=== PATIENT | male | born 1970 | race Caucasian/White ===

== ENCOUNTER 2017-02-09 05:52 | Emergency (ER) | payer SELFPAY ==
--- NOTE | ~2017-02-09 | ER ---
PATIENT'S NAME: [facility] AGE: 46 Y [address] ROOM: [place] [address] LOCATION: [facility] ADMIT DATE: 02/09/2017 ER/Outpatient Report DISCHARGE DATE: 02/09/2017 FAMILY PHYSICIAN: New Nguyen MD ATTENDING PHYSICIAN: Pedro Chisholm TIME OF ARRIVAL: 0552 hours. TIME OF EVALUATION: 0556 hours. CHIEF COMPLAINT: Back pain. HISTORY OF PRESENT ILLNESS: The patient is a 46-year-old male who presents to the emergency department today with a chief complaint of back pain. He reports this started about an hour and a half prior to arrival. He was walking his dog. His dog did pull on a leash, attempting to erickson a rabbit and did kind of twisted him to the side. He does have a history of back issues in the past, but really has not had much issues with this since. He has a history compression fracture, laminectomy. Denies any other trauma, no fall. It is a sharp pain. It is constant, currently 8/10 in severity. It is worse on the right. He did not take any medicines for it. PAST MEDICAL HISTORY: Compression fracture, ADHD, bipolar, depression, spinal stenosis. PAST SURGICAL HISTORY: Laminectomy. SOCIAL HISTORY: The patient quit smoking 3 weeks ago. Reports he quit drinking 4-5 months ago. Denies any drugs. ALLERGIES: NO KNOWN DRUG ALLERGIES. MEDICATIONS: Please see list. PRIMARY CARE DOCTOR: New Nguyen MD. PATIENT'S NAME: [facility] AGE: 46 Y [address] ROOM: [place] [address] LOCATION: [facility] ADMIT DATE: 02/09/2017 ER/Outpatient Report DISCHARGE DATE: 02/09/2017 FAMILY PHYSICIAN: New Nguyen MD ATTENDING PHYSICIAN: Pedro Chisholm REVIEW OF SYSTEMS: All systems are reviewed by myself and negative with the exception of those discussed in HPI and past medical history. PHYSICAL EXAMINATION: VITAL SIGNS: Weight 98.3 kg, blood pressure 145/95, pulse 107, respiratory rate 20, temperature 97.0, oxygen saturation 97% on room air. GENERAL: The patient is a 46-year-old male, well developed, well nourished, in mild acute distress. HEENT: Head normocephalic, atraumatic. Pupils are equal, round, and reactive to light and accommodation. Extraocular motions are intact. Nares are patent bilaterally. Oropharynx is clear. Nares with clear discharge bilaterally. NECK: Supple. There is no nuchal rigidity. CARDIOVASCULAR: Regular rate and rhythm. No murmurs, rubs, or gallops. LUNGS: Clear to auscultation bilaterally. No wheezes, rales, or rhonchi. ABDOMEN: Soft, nontender, and nondistended. No rebound, rigidity, or guarding. MUSCULOSKELETAL: The patient has tenderness to palpation to the right lumbar paraspinal musculature. NEUROLOGICAL: GCS 15. Alert and oriented. The patient does have 2/4 reflexes on the left patella. He has 1/4 reflexes on the right patella. SKIN: Warm and dry. LABS AND X-RAYS: None. IMPRESSION: 1. Acute lumbar back pain, suspect musculoskeletal. 2. Initial visit. EMERGENCY DEPARTMENT COURSE: The patient was brought back to the examination room. Seen and evaluated by myself. The patient is given 5 mg of Valium IM as well as 60 mg of Toradol IM. I have discussed the results of the history and physical with the patient. I do suspect this is musculoskeletal. I have discussed level ground walking, ice, heat. I have written a prescription for Naprosyn and Flexeril with sedation warning. I have discussed following up with Dr. New Nguyen in 2-3 days for re-evaluation. I have discussed following up with Dr. Rainey in 3-6 weeks, if there is no improvement. The patient is agreeable. I have discussed return to care instructions including worsening symptoms, loss of bowel or bladder saddle anesthesia or any other concerns to return to the emergency department as soon as possible. The patient is agreeable without further questions. DISPOSITION: PATIENT'S NAME: ISIAH FULLER [facility] AGE: 46 Y [address] ROOM: [place], [place] [address] LOCATION: [facility] ADMIT DATE: 02/09/2017 ER/Outpatient Report DISCHARGE DATE: 02/09/2017 FAMILY PHYSICIAN: New Nguyen MD ATTENDING PHYSICIAN: Pedro Chisholm The patient discharged home in good condition. DO MONICA QUINONEZ/pranav /[id number] d: 02/09/17 1131 t: 02/09/17 1448, OUTPATIENT REPORT
[~2017-02-09 05:52] MED LIST: ABILIFY IM/SUB-Q; ALDACTONE25 MG PO; ATIVAN 1 MG1 MG PO; DIUREX MAX50 MG PO; DOXEPIN HCL100 MG PO; ELAVIL75 MG PO; FOLIC ACID1 MG PO; KEFLEX500 MG; LASIX40 MG PO; LIBRIUM25 MG PO; LISINOPRIL PO; LOPRESSOR50 MG PO; OMEPRAZOLE MAGN20 MG PO; PRILOSEC20 MG; PRINIVIL OR ZES10 MG PO; RITALIN 10MG10 MG PO; ROXICODONE 5MG (5 MG PO; THERA-VITE W/ B1 TAB PO; THIAMINE HCL100 MG PO; XANAX0.5 MG PO
== END 2017-02-09 06:21 | disposition disaster alternative care site (69) ==
LOC: GMED 05:52
DX: M54.5 Low back pain (principal); I10 Essential (primary) hypertension; F90.9 Attention-deficit hyperactivity disorder, unspecified type; F31.9 Bipolar disorder, unspecified; Z87.891 Personal history of nicotine dependence; Z79.899 Other long term (current) drug therapy; Z98.890 Other specified postprocedural states; X50.1XXA Overexertion from prolonged static or awkward postures, initial encounter; Y93.01 Activity, walking, marching and hiking
CPT/HCPCS: J1885; J3360

== ENCOUNTER 2017-02-20 11:34 | Inpatient (IN) | payer SELFPAY ==
[~2017-02-20] VITALS: Ht 180.3 cm; Wt 96.8 kg
--- NOTE | ~2017-02-20 | ER ---
PATIENT'S NAME: JONNY [facility] AGE: 46 Y [address] ROOM: [place] [address] LOCATION: [facility] ADMIT DATE: 02/20/2017 ER/Outpatient Report DISCHARGE DATE: FAMILY PHYSICIAN: New Nguyen MD ATTENDING PHYSICIAN: Ariel LOPEZ Time of Arrival: 1134. Time Seen: 1158. IDENTIFICATION: 46-year-old male. CHIEF COMPLAINT: Alcoholism. HISTORY OF PRESENT ILLNESS: The patient is a 46-year-old male, who had been sober for several months with the last 5 days has been "on a drinking binge." He has been drinking 1.75 L of liquor daily. He has had withdrawal symptoms in the past but no seizures or hallucinations. Last drink was 1 hour prior to arrival. He took his blood pressure at home, was elevated at 170/110, and he was concerned and wondered "when my heart was going to explode." He has no chest pain. He has no physical complaints. Again, he had been sober for about six months. He has been through rehab seven times. He has no headache. No chest pain. No other problems or concerns. He is interested in medical detox. ALLERGIES: NO KNOWN DRUG ALLERGIES. CURRENT MEDICATIONS: 1. Proventil one puff p.r.n. 2. Adderall 10 mg b.i.d. 3. Ativan 0.5 mg b.i.d. 4. Amitriptyline 75 mg at bedtime. 5. Flexeril 10 mg q.8 hours p.r.n. 6. Prazosin 2 mg at bedtime. 7. Hydroxyzine 25 mg b.i.d. p.r.n. MEDICAL PROBLEMS: Asthma, bipolar, ADHD, hypertension, alcoholism, spinal stenosis. PRIOR SURGERIES: Laminectomy. SOCIAL HISTORY: PATIENT'S NAME: [facility] AGE: 46 Y [address] ROOM: [address] [place] [id number] LOCATION: [facility] ADMIT DATE: 02/20/2017 ER/Outpatient Report DISCHARGE DATE: FAMILY PHYSICIAN: New Nguyen MD ATTENDING PHYSICIAN: Ariel LOPEZ The patient lives here in [place]. He is currently unemployed. Tobacco use; 1 pack per day for 8 years, quit 1 month ago. Alcohol use, as noted above. Drug use, marijuana. FAMILY HISTORY: No pertinent family history identified. PHYSICAL EXAMINATION: VITAL SIGNS: Height 6 feet 0 inches, weight 96.8 kg, blood pressure 137/101, pulse 108, respirations 16, temperature 97.5, sats 96% on room air. GENERAL: 46-year-old male, in no acute distress. HEENT: Head: Normocephalic, atraumatic. Eyes: Pupils equal and reactive to light and accommodation. Extraocular movements intact. Conjunctivae injected. Nose; mucosa pink. No lesions or drainage. Mouth: No lesions. Pharynx benign. NECK: Supple. No lymphadenopathy. LUNGS: Clear to auscultation. HEART: Sinus tachycardia. No murmur, rub, or gallop. ABDOMEN: Bowel sounds present. Soft, nondistended, nontender. SKIN: [place], warm, and dry. No lesions or rashes noted. NEUROLOGIC: The patient is alert and oriented x4. Cranial nerves 2 through 12 grossly intact. Motor strength 5/5 throughout. Sensation is intact to light touch. No lower extremity edema. No bony tenderness noted. An IV was initiated, 1 L of banana bag to run over 4 hours was initiated. LABORATORY DATA AND X-RAYS: EKG; sinus rhythm at 96 beats per minute. No acute ST elevation or depression. Sodium 141, potassium 3.9, chloride 108, CO2 of 23, BUN 12, creatinine 1.0, blood sugar 113, AST elevated at 82, ALT 76. Hemoglobin 16.5, hematocrit 45.6, platelets 159, white count 5.0, normal differential. INR is 0.96. Urine drug screen positive for amphetamines, but he is on Adderall and THC. UA otherwise negative. IMPRESSION AND PLAN: 1. Alcohol dependence with a history of withdrawal symptoms. The patient will be admitted for medical detox, banana bag initiated in the emergency room. 2. Acute alcohol intoxication. 3. Bipolar disorder. 4. Hypertension, may be related to alcohol withdrawal, we will continue to monitor. Dr. Lopez evaluated the patient in the emergency room for hospitalization. He is a Stephane Nguyen patient, but Dr. Nguyen's office had called over and requested hospitalist for admission. PATIENT'S NAME: JONNYISIAH [facility] AGE: 46 Y [address] ROOM: [address] [address] LOCATION: [facility] ADMIT DATE: 02/20/2017 ER/Outpatient Report DISCHARGE DATE: FAMILY PHYSICIAN: New Nguyen MD ATTENDING PHYSICIAN: Ariel LOPEZ MD SONIA KOENIG/modl /[id number] d: 02/20/176 t: 02/21/17 0610, OUTPATIENT REPORT
--- NOTE | ~2017-02-20 | HP ---
PATIENT'S NAME: JOHNS HOPKINS [facility] AGE: 46 Y [address] ROOM: [address] [address] LOCATION: [facility] ADMIT DATE: 02/20/2017 History & Physical DISCHARGE DATE: FAMILY PHYSICIAN: New Nguyen MD ATTENDING PHYSICIAN: Ariel HUTTON DATE OF SERVICE: CHIEF COMPLAINT: Alcohol intoxication. HISTORY OF PRESENT ILLNESS: The patient is a 46-year-old gentleman with the past medical history of alcohol abuse and history of severe alcohol withdrawal with no mention of seizure, who presents here with alcohol intoxication and withdrawal. The patient reports that he has not been drinking since August after he was admitted to our hospital for alcohol withdrawal, and, however, for the past 5 to 6 days, he has been drinking half a gallon of vodka a day. His last drink was last night. He reports that he noted his blood pressure to be elevated and noted him to be in withdrawal symptoms as he was trying to stop drinking. Currently, he denies any fever, chills, abdominal pain, nausea, vomiting, headache, or diarrhea. Of note, the patient was admitted to our hospital in the beginning of this year for the same presentation and was discharged to home in stable condition. Since then, he has not had any drink, however, for the past few days, he has been drinking half a gallon of vodka a day. PAST MEDICAL HISTORY: 1. Alcohol abuse. 2. Anxiety. 3. Bipolar disease. PAST SURGICAL HISTORY: Back surgery. FAMILY HISTORY: He reports that parents are alive, and no medical issues. Also his siblings are alive and no medical issues. SOCIAL HISTORY: He stopped smoking a month ago. Last alcohol use yesterday evening. PATIENT'S NAME: JOHNS HOPKINS [facility] AGE: 46 Y [address] ROOM: [address] [address] LOCATION: [facility] ADMIT DATE: 02/20/2017 History & Physical DISCHARGE DATE: FAMILY PHYSICIAN: New Nguyen MD ATTENDING PHYSICIAN: Ariel HUTTON The patient is disabled due to bipolar and back pain. He is . No kids, lives with his dog. MEDICATIONS: 1. Proventil 1 puff a day. 2. Adderall 10 mg twice a day. 3. Ativan 0.5 mg twice a day. 4. Amitriptyline 75 mg p.o. at night. 5. Flexeril 10 mg p.o. q.8 hours. 6. Prazosin 2 mg p.o. daily. REVIEW OF SYSTEMS: All systems have been reviewed and are negative except for what I mentioned. PHYSICAL EXAMINATION: VITAL SIGNS: Blood pressure 137/101, heart rate of 108, temperature of 97.5, respiratory rate of 16, and oxygen saturation of 96% on room air. GENERAL APPEARANCE: The patient is alert and awake, with mild hand tremor. CHEST: Clear to auscultation bilaterally. EYES: Extraocular muscles intact. No icteric sclerae. NOSE: No nasal discharge. EARS: No ear discharge. MOUTH: Oral moist mucosa. CHEST: Clear to auscultation bilaterally. HEART: Tachycardic. No murmurs, rubs, or gallops. ABDOMEN: Soft, nontender, and nondistended. Bowel sounds present. SKIN: Warm to touch. MUSCULOSKELETAL: No joint effusion. Range of motion intact. WIRE DRAWING SETTER: Alert and oriented x3. Motor and sensory grossly intact. SKIN: Warm to touch. LABORATORY DATA: White blood cells of 5, hemoglobin of 16.5, and platelets of 159,000. Glucose of 113, BUN of 12, creatinine of 1, and sodium of 141. AST of 82, and total bilirubin of 0.6. EKG shows normal sinus rhythm with heart rate of 96, QTc of 403, and QT of 350. Urine tox screen is positive for THC and amphetamine. ASSESSMENT AND PLAN: 1. Alcohol intoxication. The patient's alcohol level of 0.219 g/dL. The patient has a history of alcohol intoxication and also alcohol withdrawal. We will place the patient on CIWA protocol. We will hold the patient's Ativan home medication and start the patient on Valium 5 mg PATIENT'S NAME: ISIAH FULLER [facility] AGE: 46 Y [address] ROOM: [id number] [place], [place] [address] LOCATION: [facility] ADMIT DATE: 02/20/2017 History & Physical DISCHARGE DATE: FAMILY PHYSICIAN: New Nguyen MD ATTENDING PHYSICIAN: Ariel HUTTON b.i.d. Also add phenobarbital [address] patient on CIWA protocol. Has received one banana bag. We will switch that to p.o. thiamine. When the patient is stable to be reassessed by Psychiatry hopefully for Stevo Raphael admission. 2. Alcohol abuse. A long discussion was made about cessation. The patient is ready to quit. 3. Bipolar. Currently stable and he does not seem to be on any antipsychotic medication. 4. Attention-deficit hyperactivity disorder. The patient is taking Adderall. We will hold Adderall for now. The patient reports that he takes it as needed. Greater than 35 minutes were spent on patient's care. We will admit the patient for alcohol intoxication and alcohol withdrawal. MD EMILIA MOSLEY/pranav /[id number] D: [id number] T: [id number] HISTORY & PHYSICAL
[2017-02-20 12:20] LABS: BILIRUBIN URINE NEGATIVE (NEGATIVE); BLOOD URINE NEGATIVE /UL (NEGATIVE); COLOR URINE YELLOW (YELLOW); GLUCOSE URINE NEGATIVE (NEGATIVE); KETONE URINE NEGATIVE (NEGATIVE); LEUKOCYTES URINE NEGATIVE /UL (NEGATIVE); NITRITE URINE NEGATIVE (NEGATIVE); PROTEIN URINE 15 mg/dL (NEGATIVE); SPEC GRAVITY URINE 1.015 (1.003-1.035); TURBIDITY URINE CLEAR (CLEAR); UROBILINOGEN URINE NORMAL (NORMAL)
[2017-02-20 12:29] LABS: EPITHELIAL URINE 0-2 #/HPF (NEGATIVE); RBC URINE NEGATIVE #/HPF (NEGATIVE); WBC URINE NEGATIVE #/HPF (NEGATIVE)
[2017-02-20 12:30] LABS: BASOPHIL % 0.6 %; EOSINOPHIL # 0.1 K/uL (0.0-0.5); EOSINOPHIL % 1.8 %; HEMATOCRIT 45.6 % (37.0-53.0); HEMOGLOBIN 16.5 g/dL (12.0-17.0); IMMATURE GRANULOCYTE % 0.6 %; LYMPHOCYTE # 2.1 K/uL (0.8-4.0); MCH 31.3 pg (27.0-34.0); MCHC 36.2 gm/dL (32.0-36.5); MCV 86.5 fl (83.0-98.0); MONOCYTE # 0.4 K/uL (0.0-1.0); NEUTROPHIL # (ANC) 2.4 K/uL (1.4-9.0); NRBC % 0 /100WBC (0-0.00); PLATELET COUNT 159 K/uL (150-450); RBC 5.27 M/uL (4.00-6.00); RDW-CV 13.4 % (11.9-14.6)
[2017-02-20 12:30] LABS: AMORPHOUS URINE 1+ (NEGATIVE); BACTERIA URINE NEGATIVE (NEGATIVE); MUCUS URINE 1+ (NEGATIVE)
[2017-02-20 12:37] LABS: BARBITURATE NEGATIVE (NEGATIVE); COCAINE NEGATIVE (NEGATIVE); OPIATES NEGATIVE (NEGATIVE)
[2017-02-20 12:39] LABS: AMPHETAMINE POSITIVE (NEGATIVE)
[2017-02-20 12:41] LABS: INR - (THERAPEUTIC) 0.96 (0.92-1.07); PROTIME 10.1 SECONDS (9.8-11.4); PTT 30 SECONDS (25-32)
[2017-02-20 12:49] LABS: ALK PHOS 89 IU/L (33-138); ALT 76 IU/L (12-78); ANION GAP 13.9 (10.0-19.0); AST 82 IU/L (10-40); BLOOD UREA NITROGEN 12 mg/dL (6-24); CALCIUM 8.4 mg/dL (8.5-10.5); CHLORIDE 108 mMol/L (96-110); CO2 23 mMol/L (22-32); ESTIMATED GFR (MDRD EQUATION) > 60; POTASSIUM 3.9 mMol/L (3.7-5.1); SODIUM 141 mMol/L (135-145); TOTAL BILIRUBIN 0.6 mg/dL (0.0-1.5); TOTAL PROTEIN 7.7 g/dL (6.0-8.4)
[2017-02-20] MEDS ORDERED: ATARAX25 MG PO (16:14)
[2017-02-20] MEDS ORDERED: MINIPRESS2 MG PO (16:14)
[2017-02-20] MEDS ORDERED: ADDERALL10 MG PO (16:14)
[2017-02-20] MEDS ORDERED: PROVENTIL OR V6.7 GM INH (16:15)
[2017-02-21] MEDS ORDERED: THIAMINE HCL100 MG PO (14:07)
[2017-02-21] MEDS ORDERED: PRINIVIL (ZESTRI5 MG PO (14:08)
== END 2017-02-21 14:25 | disposition disaster alternative care site (69) | DRG 897 ==
LOC: GMED 11:34 → G3N 15:11
PROVIDERS: Family Medicine; ADMIT Internal Medicine
DX: F10.229 Alcohol dependence with intoxication, unspecified (principal); F31.9 Bipolar disorder, unspecified; I10 Essential (primary) hypertension; Y90.7 Blood alcohol level of 200-239 mg/100 ml; F90.9 Attention-deficit hyperactivity disorder, unspecified type; M54.9 Dorsalgia, unspecified; F41.9 Anxiety disorder, unspecified; Z87.891 Personal history of nicotine dependence
CPT/HCPCS: G0480; J1650; J3411; J7030

== ENCOUNTER 2017-03-27 05:42 | Emergency (ER) | payer SELFPAY ==
--- NOTE | ~2017-03-27 | ER ---
PATIENT'S NAME: JONNY [facility] AGE: 47 Y [address] ROOM: [place] [address] LOCATION: [facility] ADMIT DATE: 03/27/2017 ER/Outpatient Report DISCHARGE DATE: 03/27/2017 FAMILY PHYSICIAN: New Nguyen MD ATTENDING PHYSICIAN: Nihsant Degroot Time of arrival: 0541 hours. Time of Evaluation: 0548 hours. CHIEF COMPLAINT: Right ring finger injury. HISTORY OF PRESENT ILLNESS: The patient is a 47-year-old male who presents to the emergency department today with a chief complaint of right ring finger injury. He reports that he fell on a cement earlier this morning. He was out walking the dog, when he had a ground level fall, landed on his finger. He reports it was bended backwards. He did report that it went back into place a little bit. However, it did not look normal. He reports sharp pain, 7/10 in severity. It is worse with movement. PAST MEDICAL HISTORY: Hypertension, ADHD, alcohol abuse, anxiety, bipolar. PAST SURGICAL HISTORY: None. SOCIAL HISTORY: The patient denies any tobacco use. Reports no alcohol in the past. any illicit drug use. ALLERGIES: NO KNOWN DRUG ALLERGIES. MEDICATIONS: Please see list. PRIMARY CARE DOCTOR: New Nguyen M.D. REVIEW OF SYSTEMS: All systems are reviewed by myself and are negative with the exception of those discussed in the HPI and past medical history. PHYSICAL EXAMINATION: PATIENT'S NAME: [facility] AGE: 47 Y [address] ROOM: [place] [address] LOCATION: [facility] ADMIT DATE: 03/27/2017 ER/Outpatient Report DISCHARGE DATE: 03/27/2017 FAMILY PHYSICIAN: New Nguyen MD ATTENDING PHYSICIAN: Nishant Degroot VITAL SIGNS: Weight 97.7 kg. Blood pressure 127/96, pulse 106, respiratory rate 16, temperature 98.6, oxygen saturation 95% on room air. GENERAL: The patient is a 47-year-old male, who appears stated age, in no acute distress at this time. HEENT: Normocephalic, atraumatic. Pupils are equal, round, and reactive to light. NECK: Supple. There is no nuchal rigidity. No step-offs or deformities. CARDIOVASCULAR: Tachycardic. No murmurs, rubs, or gallops. LUNGS: Clear to auscultation bilaterally. No wheezes, rales, or rhonchi. ABDOMEN: Soft, nontender, and nondistended. No rebound, rigidity, or guarding. MUSCULOSKELETAL: The patient has obvious deformity noted of the right ring finger with step-off noted at the proximal interphalangeal joint. SKIN: Warm and dry. LABORATORY DATA AND X-RAYS: A 3-view x-ray of the right hand is obtained. It does reveal a dislocation at the right ring finger proximal interphalangeal joint. I see no evidence of fracture. This is interpreted by myself. IMPRESSION: 1. Acute closed right ring finger dislocation at the proximal interphalangeal joint with successful reduction. 2. Initial visit. EMERGENCY DEPARTMENT COURSE: The patient was brought back to the examination room. Seen and evaluated by myself. The patient is anesthetized with 0.5% Marcaine without epinephrine in a digital block of the right ring finger. An x-ray is obtained. I have discussed the x-ray results with the patient. The finger is reduced with traction. The alignment does appear normal. Capillary refill is less than 2 seconds. I have placed the patient in a finger splint. I have asked he follows up with Dr. New Nguyen in 3-5 days for re-evaluation. I have discussed return to care instructions including worsening of symptoms or any other concerns, to return to the emergency department as soon as possible. The patient is agreeable. He is without further questions at this time. I have recommended Tylenol and ibuprofen for pain, rest, ice, compression, elevation. The patient is agreeable without further questions. DISPOSITION: The patient is discharged to home in good condition. PATIENT'S NAME: ISIAH FULLER [facility] AGE: 47 Y [address] ROOM: [place] [address] LOCATION: [facility] ADMIT DATE: 03/27/2017 ER/Outpatient Report DISCHARGE DATE: 03/27/2017 FAMILY PHYSICIAN: New Nguyen MD ATTENDING PHYSICIAN: Nishant Degroot DO KJR/modl /[id number] d: 03/27/17 1220 t: 03/31/17 1146, OUTPATIENT REPORT
[~2017-03-27 05:42] MED LIST changes: +ADDERALL10 MG PO; +ATARAX25 MG PO; +MINIPRESS2 MG PO; +PRINIVIL (ZESTRI5 MG PO; +PROVENTIL OR V6.7 GM INH
== END 2017-03-27 06:29 | disposition disaster alternative care site (69) ==
LOC: GACC 05:42
PROC: 0RSWXZZ Reposition Right Finger Phalangeal Joint, External Approach (ICD-10-PCS; principal; 2017-03-27)
DX: S63.284A Dislocation of proximal interphalangeal joint of right ring finger, initial encounter (principal); I10 Essential (primary) hypertension; F90.9 Attention-deficit hyperactivity disorder, unspecified type; F41.9 Anxiety disorder, unspecified; F31.9 Bipolar disorder, unspecified; Z79.899 Other long term (current) drug therapy; W18.30XA Fall on same level, unspecified, initial encounter

== ENCOUNTER 2017-03-27 20:15 | Emergency (ER) | payer SELFPAY ==
--- NOTE | ~2017-03-27 | ER ---
PATIENT'S NAME: ISIAH FULLER [facility] AGE: 47 Y [address] ROOM: [place] [address] LOCATION: [facility] ADMIT DATE: 03/27/2017 ER/Outpatient Report DISCHARGE DATE: 03/27/2017 FAMILY PHYSICIAN: New Nguyen MD ATTENDING PHYSICIAN: Fred Degroot Time of Arrival: 2015 hours. Time of Evaluation: 0 hours. CHIEF COMPLAINT: This is a 47-year-old male, previously reasonably healthy, is in with finger dislocation. HISTORY OF PRESENT ILLNESS: He fell earlier today and dislocated his right ring finger at the proximal interphalangeal joint. He was seen by Dr. Chisholm. The finger was reduced and splinted. He states that subsequently a lump developed on the radial aspect of his finger and he has had increased pain. PAST MEDICAL HISTORY: Significant for bipolar disorder and chronic back pain. CURRENT MEDICATIONS: See list. REVIEW OF SYSTEMS: Otherwise negative. PHYSICAL EXAMINATION: GENERAL: An alert cooperative male, in no acute distress. VITAL SIGNS: Stable. SKIN: Warm and dry. Color was normal. The splint was removed. His finger had dislocated. There was an area of skin breakdown adjacent to the proximal interphalangeal joint as a result of the pressure from the deformity. Distal neurovascular function was intact. PROCEDURE: Digital block was performed with Marcaine without epinephrine. The finger was reduced and re-splinted. ASSESSMENT: Recurrent finger dislocation at the proximal interphalangeal joint. PLAN: Follow up with a hand surgeon or orthopedic surgeon in 3 to 5 days. PATIENT'S NAME: ISIAH FULLER [facility] AGE: 47 Y [address] ROOM: [place] [address] LOCATION: [facility] ADMIT DATE: 03/27/2017 ER/Outpatient Report DISCHARGE DATE: 03/27/2017 FAMILY PHYSICIAN: New Nguyen MD ATTENDING PHYSICIAN: Fred Degroot FRED DEGROOT MD JDB/modl /[id number] d: 03/28/17 0555 t: 03/31/17 1146, OUTPATIENT REPORT
== END 2017-03-27 21:52 | disposition disaster alternative care site (69) ==
LOC: GACC 20:15
PROC: 0RSWXZZ Reposition Right Finger Phalangeal Joint, External Approach (ICD-10-PCS; principal; 2017-03-27)
DX: S63.284A Dislocation of proximal interphalangeal joint of right ring finger, initial encounter (principal); F31.9 Bipolar disorder, unspecified; F41.9 Anxiety disorder, unspecified; F90.9 Attention-deficit hyperactivity disorder, unspecified type; Z79.899 Other long term (current) drug therapy; W19.XXXA Unspecified fall, initial encounter